=== PATIENT | male | born 1955 | race Caucasian/White ===

== ENCOUNTER 2022-03-21 13:26 | Outpatient (CLI) | payer MEDICARE | END 2022-03-21 13:27 | disposition home or self-care (01) | LOC: BURRAD 13:26 | PROVIDERS: ATTEND Nurse Practitioner Family | DX: Z01.811 Encounter for preprocedural respiratory examination (principal); R06.02 Shortness of breath; R06.00 Dyspnea, unspecified | CPT/HCPCS: 71046 ==

== ENCOUNTER 2025-02-17 09:47 | Emergency (ER) | payer OTHER ==
[2025-02-17] MEDS ORDERED: Ondansetron PF 4 MG/2 ML Vial ONE (10:09)
[2025-02-17] MEDS ORDERED: Boostrix 0.5 ML (Tdap) VIAL (>/=7 yrs of age) ONE (10:10)
[2025-02-17] MEDS ORDERED: Bacitracin 1 PK ONE (10:29)
[2025-02-17] MEDS ORDERED: Lidocaine 1% w/Epinephrine 1:100K 20 ML VIAL ONE (10:43)
[2025-02-17] MEDS ORDERED: Ketamine 50 MG/ML (10ML VIAL) ONE (11:57)
[2025-02-17 12:54] LABS: Hematocrit 43.2 % (42.0-52.0); Hemoglobin 15.5 g/dL (14.0-18.0); Mean Corpuscular Hemoglobin 29.1 pg (27.0-31.0); Mean Corpuscular Volume 81.1 fl (78.0-98.0); Platelet Count 253 10x3/uL (130-400); Red Blood Cell (RBC) Count 5.33 mill/uL (4.70-6.10); White Blood Cell (WBC) Count 27.1 10x3/uL (4.8-10.8)
[2025-02-17 13:04] LABS: ALT (SGPT) 46 U/L (Less than 45); AST (SGOT) 64 U/L (11-34); Albumin 4.1 g/dL (3.1-4.5); Alkaline Phosphatase 93 U/L (40-110); Anion Gap 19 mmol/L (10-20); BUN (Urea Nitrogen) 19 mg/dL (8.4-25.7); Bilirubin, Total 0.7 mg/dL (0.3-1.2); Calc. Creatinine Clearance 0 mL/min (70-130); Calcium 9.5 mg/dL (7.8-10.44); Carbon Dioxide 20 mmol/L (23-31); Chloride 107 mmol/L (98-107); Globulin 3.2 g/dL (2.4-3.5); Glucose 195 mg/dL (83-110); Potassium 4.6 mmol/L (3.5-5.1); Sodium 141 mmol/L (136-145)
[2025-02-17 13:05] LABS: Troponin I Less than 0.010 ng/mL (< 0.028)
[2025-02-17 13:06] LABS: MDiff Complete? YES; Platelet Adequacy Comment Appears Adequate
[2025-02-17 14:18] LABS: Glucose, Urine (Dipstick) >=1000 mg/dL (Negative); Leukocyte Negative (Negative); Protein, Urine (Dipstick) 100 mg/dL (Neg-Trace); Specific Gravity, Urine 1.010 (1.005-1.030)
[2025-02-17 14:27] LABS: Bacteria/HPF 1+ HPF (None Seen); CAUTI Indications for Culture Pelvic or flank pain; RBC/HPF Greater than 50 HPF (0-3); WBC/HPF None Seen HPF (0-3)
[2025-02-17 14:29] LABS: Urine Culture Reflex No No
== END 2025-02-17 20:34 | disposition short-term general hospital (02) ==
LOC: BURERS 09:47
DX: S42.201A Unspecified fracture of upper end of right humerus, initial encounter for closed fracture (principal); S52.501A Unspecified fracture of the lower end of right radius, initial encounter for closed fracture; S01.112A Laceration without foreign body of left eyelid and periocular area, initial encounter; S50.811A Abrasion of right forearm, initial encounter; S30.81AA Abrasion of flank, initial encounter; I11.0 Hypertensive heart disease with heart failure; I50.9 Heart failure, unspecified; E11.9 Type 2 diabetes mellitus without complications; Z79.4 Long term (current) use of insulin; Z23 Encounter for immunization; Z79.84 Long term (current) use of oral hypoglycemic drugs; Z79.85 Long-term (current) use of injectable non-insulin antidiabetic drugs; W22.8XXA Striking against or struck by other objects, initial encounter
CPT/HCPCS: 12013; 23605; 71045; 80053; 81001; 84484; 85025; 90471; 90715; 93005; 94760; 96374; 96375; 96376; 99152; 99153; J3010

== ENCOUNTER 2025-02-24 16:51 | Inpatient (IN) | payer OTHER ==
[2025-02-25] MEDS ORDERED: Calcium Carbonate 500 MG ChewTAB PO PRN (17:53)
[2025-02-25] MEDS ORDERED: Senokot S 8.6-50 MG TAB PO PRN (17:53)
[2025-02-25] MEDS: HYDROcodone/Acetaminophen 10/325 mg Tablet PO SCH (18:27)
[2025-02-25] MEDS ORDERED: Dextrose 50% Abboject 50 ML SYRINGE SLOW IVP PRN (19:01)
[2025-02-25] MEDS ORDERED: Glucagon 1 MG/ML KIT IM PRN (19:01)
[2025-02-25] MEDS: Methocarbamol 500 MG TAB PO PRN (19:12)
[2025-02-25] MEDS: Gabapentin 300 MG CAP PO SCH (20:19)
[2025-02-25] MEDS: Finasteride 5 MG TAB PO SCH (20:20)
[2025-02-25] MEDS: Senokot S 8.6-50 MG TAB PO SCH (20:20)
[2025-02-25] MEDS: Acetaminophen 325 MG TAB PO PRN (20:20)
[2025-02-25] MEDS: Sacubitril 49 MG/Valsartan 51 MG TABLET PO SCH (20:20)
[2025-02-25] MEDS: metFORMIN 500 MG TAB PO SCH (20:21)
[2025-02-25 23:32] VITALS: BMI 33.6
[2025-02-26 05:09] LABS: #Basophils 0.4 thou/uL (0.0-0.2); #Eosinophils 0.4 thou/uL (0.0-0.7); #Lymphocytes 2.5 thou/uL (1.20-3.40); #Monocytes 1.2 thou/uL (0.11-0.59); #Neutrophils 10.9 thou/uL (1.40-6.50); %Basophils 2.3 % (0.0-1.0); %Eosinophils 2.4 % (0.0-10.0); %Lymphocytes 16.4 % (21.0-51.0); %Monocytes 8.0 % (0.0-10.0); %Neutrophils 70.9 % (42.0-75.0); Hematocrit 35.0 % (42.0-52.0); Hemoglobin 12.5 g/dL (14.0-18.0); Mean Corpuscular Hemoglobin 28.6 pg (27.0-31.0); Mean Corpuscular Volume 80.2 fl (78.0-98.0); Platelet Count 368 10x3/uL (130-400); Red Blood Cell (RBC) Count 4.37 mill/uL (4.70-6.10); White Blood Cell (WBC) Count 15.4 10x3/uL (4.8-10.8)
[2025-02-26 05:27] LABS: ALT (SGPT) 20 U/L (Less than 45); AST (SGOT) 14 U/L (11-34); Albumin 2.8 g/dL (3.1-4.5); Alkaline Phosphatase 123 U/L (40-110); Anion Gap 15 mmol/L (10-20); BUN (Urea Nitrogen) 16 mg/dL (8.4-25.7); Bilirubin, Total 0.7 mg/dL (0.3-1.2); Calc. Creatinine Clearance 175 mL/min (70-130); Calcium 8.7 mg/dL (7.8-10.44); Carbon Dioxide 21 mmol/L (23-31); Chloride 107 mmol/L (98-107); Globulin 3.5 g/dL (2.4-3.5); Glucose 124 mg/dL (83-110); Potassium 4.1 mmol/L (3.5-5.1); Sodium 139 mmol/L (136-145)
[2025-02-26] MEDS: Lantus 1000 UNITS/10 ML VIAL SC SCH (09:30)
[2025-02-26] MEDS: Multivit, Therapeutic 1 TAB PO SCH (09:31)
[2025-02-26] MEDS: Carvedilol 6.25 MG TAB PO SCH (09:31)
[2025-02-26] MEDS: PNEUMOC 20-VAL CONJ-DIP CRM/PF 0.5 ML SYRINGE IM ONE (09:32)
[2025-02-26 17:32] VITALS: BMI 33.6
[2025-03-02 04:49] LABS: Hematocrit 32.9 % (42.0-52.0); Hemoglobin 11.7 g/dL (14.0-18.0); MDiff Complete? YES; Mean Corpuscular Hemoglobin 28.7 pg (27.0-31.0); Mean Corpuscular Volume 80.4 fl (78.0-98.0); Platelet Adequacy Comment Appears Adequate; Platelet Count 395 10x3/uL (130-400); Red Blood Cell (RBC) Count 4.09 mill/uL (4.70-6.10); White Blood Cell (WBC) Count 15.6 10x3/uL (4.8-10.8)
[2025-03-02 04:50] LABS: Anion Gap 16 mmol/L (10-20); BUN (Urea Nitrogen) 16 mg/dL (8.4-25.7); Calc. Creatinine Clearance 175 mL/min (70-130); Calcium 8.6 mg/dL (7.8-10.44); Carbon Dioxide 18 mmol/L (23-31); Chloride 106 mmol/L (98-107); Glucose 75 mg/dL (83-110); Potassium 4.6 mmol/L (3.5-5.1); Sodium 135 mmol/L (136-145)
[2025-03-02] MEDS: Semaglutide [Ozempic] 1 MG/0.75 ML Pen.Injctr SC SCH (14:53)
[2025-03-05] MEDS: HYDROcodone/Acetaminophen 10/325 mg Tablet PO PRN (15:46)
[2025-03-09 05:24] VITALS: TEMP 98
[2025-03-09 07:57] VITALS: BP 130/76
== END 2025-03-09 08:04 | disposition home or self-care (01) | DRG 560 ==
LOC: BURMED 02-25 17:05
PROVIDERS: ADMIT Family Medicine; ATTEND Nurse Practitioner
PROC: F07Z5ZZ Bed Mobility Treatment (ICD-10-PCS; principal; 2025-02-26)
PROC: F08Z0ZZ Bathing/Showering Techniques Treatment (ICD-10-PCS; 2025-02-26)
DX: S42.201D Unspecified fracture of upper end of right humerus, subsequent encounter for fracture with routine healing (principal); I42.9 Cardiomyopathy, unspecified; Z79.899 Other long term (current) drug therapy; E11.9 Type 2 diabetes mellitus without complications; I50.9 Heart failure, unspecified; N40.0 Benign prostatic hyperplasia without lower urinary tract symptoms; Z87.891 Personal history of nicotine dependence; Z98.890 Other specified postprocedural states; S52.511D Displaced fracture of right radial styloid process, subsequent encounter for closed fracture with routine healing; E78.5 Hyperlipidemia, unspecified; R26.89 Other abnormalities of gait and mobility; R53.81 Other malaise
CPT/HCPCS: 36415; 36416; 80048; 80053; 85025; 90471; 90677; G0009; J1815